=== PATIENT | female | born 1970 | race Caucasian/White ===

== ENCOUNTER 2016-10-11 14:04 | Emergency (ER) | payer BC | END 2016-10-11 14:45 | disposition home or self-care (01) | LOC: ER 14:04 | DX: S83.91XA Sprain of unspecified site of right knee, initial encounter (principal); J45.909 Unspecified asthma, uncomplicated; Z90.49 Acquired absence of other specified parts of digestive tract; Z88.6 Allergy status to analgesic agent; W08.XXXA Fall from other furniture, initial encounter ==